=== PATIENT | female | born 1960 | race Caucasian/White ===

== ENCOUNTER 2016-09-19 11:27 | Emergency (ER) | payer OTHER ==
[~2016-09-19] VITALS: Ht 152.4 cm; Wt 85.0 kg
[2016-09-19 11:32] VITALS: TEMP 36.8; Ht 152.4 cm; Wt 85.0 kg
[2016-09-19] MEDS ORDERED: SODIUM CHLORIDE 0.9% 500ML 500 ML IV STA (12:18)
[2016-09-19] MEDS ORDERED: ONDANSETRON INJ 2 MG/ML 2 ML VIAL IV STA (12:18)
[2016-09-19] MEDS ORDERED: MECLIZINE HCL 25 MG TAB PO STA (12:18)
[2016-09-19 12:45] LABS: BASO % 0.6 %; BASO ABS # 0.04 K/uL (0-0.2); COMPLETE YES; EOS % 1.3 %; HEMATOCRIT 42.9 % (37-47); IG% 0.3 %; LYMPH ABS # 1.07 K/uL (1.2-3.4); MEAN CELL VOLUME 87.2 fL (80-100); MEAN CORPUSCULAR HEMOGLOBIN 29.5 pg (25-34); MEAN CORPUSCULAR HGB CONC 33.8 g/dl (32-36); MEAN PLATELET VOLUME 11.1 fL (7.4-10.4); NEUT % 75.8 %; PLATELET COUNT 274 K/uL (130-400); RED BLOOD COUNT 4.92 M/uL (4.2-5.4)
[2016-09-19 13:13] LABS: URINE APPEARANCE CLOUDY (CLEAR); URINE BILIRUBIN NEG (NEG); URINE COLOR YELLOW; URINE EPITHELIAL CELL AUTO 20-30 /lpf (0-5); URINE NITRITE NEG (NEG); URINE SPECIFIC GRAVITY 1.017 (1.000-1.030); UROBILINOGEN NEG (NEG); ZZUR CULT IF INDIC CLEAN CATCH YES
--- NOTE | 2016-09-19 13:13 | EMERGENCY ROOM VISIT NOTE ---
History Report prepared by Cricket: Shira Pena Under the Supervision of: Dr. Jennifer Guajardo M.D. First contact with patient: 12:06 Chief Complaint: DIZZY Stated Complaint: DIZZY, NAUSEA, PAIN IN MOUTH Nursing Triage Summary: Triage note: pt reports dizziness since last night. pt reports she has had vertigo in the past. pt reports pain in left jaw "i think it is a bad tooth." pt reports nausea. History of Present Illness The patient is a 56 year old female who presents to the Emergency Room with complaints of intermittent dizziness that started yesterday. The dizziness is worse with movement. The patient experienced one episode of dizziness yesterday morning and then was fine for the rest of the day until she laid down to go to bed. She states that when she was lying in bed the room started spinning again. The patient has experienced vertigo in the past. She is also experiencing nausea but denies vomiting. The patient has been experiencing difficulty ambulating due to lack of balance from the dizziness. She denies headache, ear pain, chest pain, shortness of breath, one-sided weakness, urinary symptoms, recent sickness, and any problems maintaining her blood sugar. She states that her father has Mnire's disease. The patient adds that she also has a sore upper left molar that started to hurt a couple days ago. She has been unable to see a dentist because her insurance will not cover it until October 08. She has not been to the dentist for a while prior to today. Source of History: patient Onset: yesterday Position: head Quality: other (dizziness) Timing: intermittent Modifying Factors (Worsening): movement Associated Symptoms: + nausea, No SOB, No chest pain, No headache, No urinary symptoms, No vomiting, No weakness (one-sided ) Note: no ear pain Review of Systems See HPI for pertinent positives & negatives. A total of 10 systems reviewed and were otherwise negative. Past Medical & Surgical Surgical Problems: (1) H/O wisdom tooth extraction Family History Cancer Diabetes mellitus Gallbladder disease Social History Smoking Status: Never Smoker Marital Status: in relationship Occupation Status: employed, [employer] student Current/Historical Medications Scheduled Clindamycin Hcl (Cleocin), 300 MG PO QID Scheduled PRN Meclizine HCl (Meclizine HCl), 1 TAB PO Q8 PRN for vertigo Allergies Coded Allergies: Amoxicillin (Unverified Allergy, Unknown, rash, 09/19/16) Sulfa Antibiotics (Unverified Allergy, Unknown, rash, 09/19/16) Physical Exam Vital Signs Date Time Temp Pulse Resp B/P Pulse Ox O2 Delivery O2 Flow Rate FiO2 09/19/16 14:49 78 23 110/67 95 Room Air 09/19/16 13:05 54 16 136/75 97 09/19/16 12:05 57 09/19/16 11:50 61 19 146/79 66 139/78 54 141/86 09/19/16 11:32 36.8 55 18 149/80 97 Physical Exam Vital signs reviewed. General: Generally well-appearing obese female, in no significant distress. HEENT: No scleral icterus, no nystagmus, PERRLA, neck supple. TMs clear bilaterally. Tenderness to palpation of the most posterior left upper molars, no obvious abscess or defect. Atraumatic. Cardiovascular: Regular rate and rhythm, no extra sounds. Pulmonary: Clear to auscultation bilaterally, normal work of breathing. Abdomen: Soft, nontender, nondistended, positive bowel sounds. Musculoskeletal: Atraumatic, no peripheral edema. Neurologic: Patient awake alert and oriented x 3, full strength in all 4 extremities. Cranial nerves 2 through 12 grossly intact. Skin: Warm, dry, no rash Medical Decision & Procedures Laboratory Results 09/19/16 11:50 Red Blood Count 4.92, Mean Corpuscular Volume 87.2, Mean Corpuscular Hemoglobin 29.5, Mean Corpuscular Hemoglobin Concent 33.8, Mean Platelet Volume 11.1, Neutrophils (%) (Auto) 75.8, Lymphocytes (%) (Auto) 16.0, Monocytes (%) (Auto) 6.0, Eosinophils (%) (Auto) 1.3, Basophils (%) (Auto) 0.6, Neutrophils # (Auto) 5.08, Lymphocytes # (Auto) 1.07, Monocytes # (Auto) 0.40, Eosinophils # (Auto) 0.09, Basophils # (Auto) 0.04 09/19/16 11:50 09/19/16 14:20 Test 09/19/16 11:50 09/19/16 12:40 09/19/16 12:46 09/19/16 12:53 White Blood Count 6.70 K/uL (4.8-10.8) Red Blood Count 4.92 M/uL (4.2-5.4) Hemoglobin 14.5 g/dL (12.0-16.0) Hematocrit 42.9 % (37-47) Mean Corpuscular Volume 87.2 fL (80-100) Mean Corpuscular Hemoglobin 29.5 pg (25-34) Mean Corpuscular Hemoglobin Concent 33.8 g/dl (32-36) Platelet Count 274 K/uL (130-400) Mean Platelet Volume 11.1 fL (7.4-10.4) Neutrophils (%) (Auto) 75.8 % Lymphocytes (%) (Auto) 16.0 % Monocytes (%) (Auto) 6.0 % Eosinophils (%) (Auto) 1.3 % Basophils (%) (Auto) 0.6 % Neutrophils # (Auto) 5.08 K/uL (1.4-6.5) Lymphocytes # (Auto) 1.07 K/uL (1.2-3.4) Monocytes # (Auto) 0.40 K/uL (0.11-0.59) Eosinophils # (Auto) 0.09 K/uL (0-0.5) Basophils # (Auto) 0.04 K/uL (0-0.2) RDW Standard Deviation 43.5 fL (36.4-46.3) RDW Coefficient of Variation 13.7 % (11.5-14.5) Immature Granulocyte % (Auto) 0.3 % Immature Granulocyte # (Auto) 0.02 K/uL (0.00-0.02) Anion Gap 9.0 mmol/L (3-11) Est Creatinine Clear Calc Drug Dose 78.9 ml/min Estimated GFR () 99.2 Estimated GFR (Non- 85.6 BUN/Creatinine Ratio 21.5 (10-20) Calcium Level 8.9 mg/dl (8.5-10.1) Total Bilirubin 0.4 mg/dl (0.2-1) Alanine Aminotransferase (ALT/SGPT) 26 U/L (12-78) Alkaline Phosphatase 79 U/L (45-117) Creatine Kinase MB 1.1 ng/ml (0.5-3.6) Creatine Kinase MB Ratio (0-3.0) Total Protein 7.5 gm/dl (6.4-8.2) Albumin 3.5 gm/dl (3.4-5.0) Thyroid Stimulating Hormone (TSH) 1.460 uIu/ml (0.300-4.500) Bedside Glucose 79 mg/dl (70-90) Bedside Troponin I 0.000 ng/ml (0-0.045) Urine Color YELLOW Urine Appearance CLOUDY (CLEAR) Urine pH 5.0 (4.5-7.5) Urine Specific [place] 1.017 (1.000-1.030) Urine Protein NEG (NEG) Urine Glucose (UA) NEG (NEG) Urine Ketones TRACE (NEG) Urine Occult Blood NEG (NEG) Urine Nitrite NEG (NEG) Urine Bilirubin NEG (NEG) Urine Urobilinogen NEG (NEG) Urine Leukocyte Esterase NEG (NEG) Urine WBC (Auto) 1-5 /hpf (0-5) Urine RBC (Auto) 0-4 /hpf (0-4) Urine Hyaline Casts (Auto) 1-5 /lpf (0-5) Urine Epithelial Cells (Auto) 20-30 /lpf (0-5) Urine Bacteria (Auto) NEG (NEG) Urine Crystals URIC ACID (NONE PRSENT) Urine Mucus PRESENT (NONE PRSENT) Urine Yeast (Auto) (NONE PRSENT) Test 09/19/16 14:20 Magnesium Level 2.2 mg/dl (1.8-2.4) Direct Bilirubin 0.1 mg/dl (0-0.2) Aspartate Amino Transf (AST/SGOT) 15 U/L (15-37) Total Creatine Kinase 89 U/L (26-192) Laboratory results per my review. Medications Administered Medications (Trade) Dose Ordered Sig/Jeramy Route Start Time Stop Time Status Last Admin Dose Admin Sodium Chloride (Nss 500ml) 500 ml @ 999 mls/hr Q31M STAT IV 09/19/16 12:18 09/19/16 12:48 DC 09/19/16 12:18 999 MLS/HR Meclizine HCl (Antivert Tab) 25 mg NOW STAT PO 09/19/16 12:18 09/19/16 12:20 DC 09/19/16 13:01 25 MG Ondansetron HCl (Zofran Inj) 4 mg NOW STAT IV 09/19/16 12:18 09/19/16 12:20 DC 09/19/16 13:00 4 MG Prednisone (PredniSONE TAB) 60 mg NOW STAT PO 09/19/16 12:18 09/19/16 12:21 DC 09/19/16 13:01 60 MG ECG Indication: nausea Rate (beats per minute): 53 Rhythm: sinus bradycardia Findings: RBBB (incomplete), no acute ischemic change, no ectopy ED Course 1215: Past medical records reviewed. The patient was evaluated in room C4. A complete history and physical examination was performed. 1218: Ordered Prednisone 60 mg PO, Zofran 4 mg IV, Antivert Tab 25 mg PO, Sodium Chloride 500 ml @ 999 mls/hr IV 1442: Upon reevaluation, the patient appeared to have improvement of her symptoms. I discussed findings with her. She verbalized agreement of the treatment plan. She was discharged home. Medical Decision The patient is a 56 year old female who presents to the Emergency Room with complaints of intermittent dizziness that started yesterday. Differentials include benign positional vertigo, dehydration, hypovolemia, anemia, tumor, infection, hypoglycemia, electrolyte abnormalities, cardiac sources, intracerebral event, toxicologic, neurologic. This patient was evaluated and appeared to be in no significant distress. IV access was obtained and laboratory work was drawn. The patient was placed on the director of cardiac rehabilitation. Hydrated with normal saline solution, given oral meclizine and IV Zofran. The patient was given 60 mg of prednisone orally. She was observed in the ER for several hours. She had significant resolution of her symptoms. She was able to tolerate a snack and oral fluids. Patient was discharged with a prescription for meclizine to be used as needed for vertigo. She was also given clindamycin 300 mg 4 times daily for 7 days for her dental infection. She will use ibuprofen as needed for pain. Patient will follow-up with a dentist and [facility] as soon as possible and return to the ER for worsening of symptoms or any medical concerns. Impression Primary Impression: Vertigo Additional Impression: Pain, dental Scribe Attestation The scribe's documentation has been prepared under my direction and personally reviewed by me in its entirety. I confirm that the note above accurately reflects all work, treatment, procedures, and medical decision making performed by me. Departure Information Dispostion Home / Self-Care Prescriptions Meclizine HCl (Meclizine HCl) 25 Mg Tab 1 TAB PO Q8 Y for vertigo for 7 Days, #21 TAB Prov: Jennifer Guajardo M.D. 09/19/16 Clindamycin Hcl (CLEOCIN) 300 Mg Cap 300 MG PO QID for 7 Days, #28 CAP Prov: Jennifer Guajardo M.D. 09/19/16 Referrals No Doctor, Assigned (PCP) Forms HOME CARE DOCUMENTATION FORM, IMPORTANT VISIT INFORMATION Patient Instructions [facility] Additional Instructions Diagnosis: Vertigo, dental pain Drink plenty of clear fluids. Meclizine 25 mg every 8 hours as needed for vertigo. Clindamycin 300 mg 4 times daily for 7 days. Start a probiotic or eat live active culture yogurt several times a day. Follow-up with a dentist as soon as possible. See your primary care physician or [facility] services for reevaluation this week. Return to the ER for worsening of symptoms or any medical concerns. Problem Qualifiers
[2016-09-19 13:20] LABS: MANUAL MICROSCOPIC REQUIRED? NO; REVIEW REQ? YES
[2016-09-19 13:21] LABS: ALKALINE PHOSPHATASE 79 U/L (45-117); ALT/SGPT 26 U/L (12-78); BLOOD UREA NITROGEN 17 mg/dl (7-18); BUN/CREATININE RATIO 21.5 (10-20); CALCIUM 8.9 mg/dl (8.5-10.1); CARBON DIOXIDE 24 mmol/L (21-32); CHLORIDE 106 mmol/L (98-107); CREATININE 0.78 mg/dl (0.60-1.20); GLUCOSE 91 mg/dl (70-99); SODIUM 139 mmol/L (136-145)
[2016-09-19 13:50] LABS: URINE MUCUS PRESENT (NONE PRSENT)
[2016-09-19 14:49] VITALS: BP 110/67; PULSE 78; O2SAT 95
[2016-09-19] MEDS ORDERED: ANT25 PO (14:57)
[2016-09-19] MEDS ORDERED: CLIN300C2 PO (14:57)
[2016-09-19 15:09] LABS: MAGNESIUM 2.2 mg/dl (1.8-2.4)
== END 2016-09-19 15:12 | disposition home or self-care (01) ==
LOC: C.EDB 11:28 → C.EDC 15:12
DX: R42 Dizziness and giddiness (principal); K08.89 Other specified disorders of teeth and supporting structures; Z83.3 Family history of diabetes mellitus; Z83.79 Family history of other diseases of the digestive system

== ENCOUNTER → 2016-12-02 | Outpatient (CLI) | payer OTHER ==
[~2016-12-02] MED LIST: ANT25 PO
--- NOTE | 2016-12-02 16:39 | MAMMOGRAPHY REPORT ---
UNILATERAL LEFT DIGITAL DIAGNOSTIC MAMMOGRAM TOMOSYNTHESIS WITH CAD: 12/02/2016 CLINICAL HISTORY: 56-year-old woman with a strong family history of breast cancer presents for follo w-up in the left breast for probably benign masses as well as a possible retroareolar mass described at an outside institution. TECHNIQUE: Left CC and MLO 2-D digital and tomosynthesis images; spot magnification left CC and ML views were obtained. Current study was also evaluated with a Computer Aided Detection (CAD) system. COMPARISON: Comparison is made to exams dated: 06/30/2016 ultrasound, 06/30/2016 mammogram - [facility], 04/01/2016 mammogram, 10/13/2006 mammogram, and 12/27/2009 mammogram. BREAST COMPOSITION: There are scattered areas of fibroglandular density in the left breast. FINDINGS: The parenchymal pattern of the left breast is similar to prior mammograms. However, there is effacement of the linear asymmetry in the retroareolar breast seen on the MLO view, which has th e appearance of normal height glandular tissue. There is stable nodularity in the middle one third of the left breast both superiorly and inferiorly. A stable circumscribed 11 mm mass with internal layering calcification in the 11:30 to 12:00 anterior left breast, confirming a benign cyst. A few groupings of microcalcifications were identified in the anterior left breast, for which additi onal spot magnification views were obtained. With the spot magnification views, some of the calcifi cations are noted layering within the cyst in the 11:30 to 12:00 breast. The other grouping of punc perea microcalcifications in the anterior upper outer left breast has been stable based on prior MLO views dating back to at least 12/27/2009, therefore likely benign. However, the prior mammogram 2009 was a film mammogram and therefore repeat spot magnification views are recommended to ensure stability in 6 months. No new suspicious mass, architectural distortion or cluster of microcalcific ations is seen. IMPRESSION: ACR-BI-RADS CATEGORY 3: PROBABLY BENIGN Stable mammographic appearance of the left breast including multiple benign-appearing circumscribed masses scattered in the left breast and probably benign groupings of punctate microcalcifications an teriorly within the left breast. Another short interval follow-up left diagnostic mammogram includi ng spot magnification views is recommended in 6 months. Annual right mammography will be due at rivas t time. These results and recommendations were discussed with the patient at the time of the exam. Approximately 10% of breast cancers are not detected with mammography. A negative mammographic repor t should not delay biopsy if a clinically suggestive mass is present. Alka Bernal M.D. ay/:12/02/2016 15:21:38 Cougar Hunter: Leonor GARCÍA)([place]), [facility] letter sent: Follow Up Recommended 3 BI-RADS Code: ACR-BI-RADS Category 3: Probably Benign
== END | disposition home or self-care (01) ==
LOC: C.MAMM 08:22
PROVIDERS: ATTEND Internal Medicine
DX: N63 Unspecified lump in breast (principal); R92.0 Mammographic microcalcification found on diagnostic imaging of breast; Z80.3 Family history of malignant neoplasm of breast